=== PATIENT | male | born 1960 | race African-American/Black ===

== ENCOUNTER 2017-11-10 17:29 | Emergency (ER) | payer OTHER ==
[~2017-11-10] VITALS: Ht 195.6 cm; Wt 101.2 kg
[~2017-11-10 17:29] MED LIST: ACETAMINOPHEN-1 EAC1 ORAL; BACTRIM DS TAB1 EAC1 ORAL; TRAMADOL HCL50 MG ORAL
[2017-11-10] MEDS ORDERED: UNOBMED (17:37)
[2017-11-10] MEDS ORDERED: CYCLOBENZAPRINE10 MG ORAL (17:37)
--- NOTE | 2017-11-10 18:10 | Emergency Room Report ---
History of Present Illness General Chief Complaint: Pain Source: Patient Present Illness HPI 57 YO Male presents to the ED C/O 10/03 in severity tightness/pain and cramping in the anterior thighs bilaterally x 1 week. pt. reports no relief from 10mg Flexeril which he has been taking. pt. reports that he walks 1 mile to and from work each day, and is standing mostly while at work. pt. denies appreciable trauma or fall. pt. reports when he stands up straight sometimes he will feel tightness in the inguinal area down into the medial thighs bilaterally. Denies neck or back pain. pt. denies dysuria, penile d/c, hx of hernia or swollen tender lymph nodes. Allergies: Coded Allergies: No Known Allergies (Unverified , 04/18/15) Patient History Past Medical History: see triage record Past Surgical History: none Pertinent Family History: none Reviewed Nursing Documentation: PMH: Agreed; PSxH: Agreed Nursing Documentation-PMH Past Medical History: No History, Except For Hx Hypertension: Yes Review of Systems All Other Systems: negative except mentioned in HPI Physical Exam Vital Signs Date Time Temp Pulse Resp B/P (MAP) Pulse Ox O2 Delivery O2 Flow Rate FiO2 11/10/17 17:31 98.0 67 18 157/95 98 Room Air 98.1 Sp02 EP Interpretation: reviewed, normal General Appearance: no apparent distress, alert, GCS 15, non-toxic Head: normocephalic, atraumatic Eyes: bilateral eye normal inspection, bilateral eye PERRL ENT: hearing grossly normal, normal voice Neck: full range of motion Respiratory: lungs clear, normal breath sounds, speaking full sentences Cardiovascular #1: regular rate, rhythm, no edema Gastrointestinal: non tender, soft Genitourinary: normal inspection Musculoskeletal: back normal, gait/station normal, normal range of motion, tender - TTP to the anterior thigh and medial thighs bilaterally, primarily on the right side. Neurologic: alert, oriented x3, responsive, motor strength/tone normal, sensory intact, normal gait, speech normal, grossly normal Psychiatric: judgement/insight normal Skin: normal color, no rash, warm/dry, well hydrated Lymphatic: no adenopathy Medical Decision Making PA Attestation Dr. Fried is my supervising physician whom pt. management has been discussed with. Diagnostic Impression: Primary Impression: Muscle strain of right lower extremity Qualified Codes: S86.911A - Strain of unspecified muscle(s) and tendon(s) at lower leg level, right leg, initial encounter ER Course 57 YO Male presents to the ED C/O 10/03 in severity tightness/pain and cramping in the anterior thighs bilaterally x 1 week. pt. reports no relief from 10mg Flexeril which he has been taking. pt. reports that he walks 1 mile to and from work each day, and is standing mostly while at work. pt. denies appreciable trauma or fall. pt. reports when he stands up straight sometimes he will feel tightness in the inguinal area down into the medial thighs bilaterally. Denies neck or back pain. pt. denies dysuria, penile d/c, hx of hernia or swollen tender lymph nodes. Ddx considered but are not limited to Fracture, dislocation, contusion, Sprain/ Strain/Spasm, hernia just to name a few. Vital signs: are WNL, pt. is afebrile H&PE are most consistent with musculoskeletal injury will perform imaging to r/ o fractures/dislocations. ORDERS: - none required at this time dx is clinical. ED INTERVENTIONS: - Toradol IM d/w pt. conservative treatment, and to follow up with a primary care provider. pt given a list of primary care clinics for follow up. d/w pt. to return to the ED with worsening or new symptoms. - D/w pt. importance of resting, and to avoid walking long distance for 1 week. DISCHARGE: At this time pt. is stable for d/c to home. Will provide printed patient care instructions, and any necessary prescriptions. Care plan and follow up instructions have been discussed with the patient prior to discharge. Last Vital Signs Date Time Temp Pulse Resp B/P (MAP) Pulse Ox O2 Delivery O2 Flow Rate FiO2 11/10/17 17:31 98.0 67 18 157/95 98 Room Air 98.1 Disposition: HOME, SELF-CARE Condition: Stable Scripts Ibuprofen* (MOTRIN*) 600 Mg Tablet 600 MG ORAL THREE TIMES A DAY, #30 TAB 0 Refills Prov: Stephanie Anderson 11/10/17 Methocarbamol* (ROBAXIN*) 500 Mg Tablet 1000 MG PO TID, #42 TAB 0 Refills Prov: Stephanie Anderson 11/10/17 Patient Instructions: Muscle Cramps and Spasms, [id number] Additional Instructions: Take medications as directed. Follow up with a Primary Care Provider in 3-5 days, even if your symptoms have resolved. --Please review list of primary care clinics, if you do not already have a primary care provider Return sooner to ED if new symptoms occur, or current symptoms become worse. Do not drink alcohol, drive, or operate heavy machinery while taking Robaxin ( Muscle Relaxers) as this may cause drowsiness. - Please note that this Emergency Department Report was dictated using [employer] technology software, occasionally this can lead to erroneous entry secondary to interpretation by the dictation equipment. Stephanie Anderson Nov 10, 2017 18:10
[2017-11-10] MEDS ORDERED: IBUPROFEN600 MG ORAL (18:12)
[2017-11-10] MEDS ORDERED: ROBAXIN500 MG PO (18:12)
[2017-11-10] MEDS ORDERED: Ketorolac 60mg Inj IM ONE (18:15)
[2017-11-10 18:24] VITALS: BP 157/95
[2017-11-10 18:46] VITALS: BP 146/88
== END 2017-11-10 18:46 | disposition home or self-care (01) ==
LOC: EMR 18:05
DX: S76.811A Strain of other specified muscles, fascia and tendons at thigh level, right thigh, initial encounter (principal); M79.652 Pain in left thigh; M79.651 Pain in right thigh; I10 Essential (primary) hypertension; Y93.01 Activity, walking, marching and hiking; Y99.9 Unspecified external cause status; Y92.9 Unspecified place or not applicable
CPT/HCPCS: 96372; 99283

== ENCOUNTER 2017-11-15 19:26 | Emergency (ER) | payer OTHER ==
[~2017-11-15] VITALS: Ht 195.6 cm; Wt 101.2 kg
[~2017-11-15 19:26] MED LIST changes: +CYCLOBENZAPRINE10 MG ORAL; +IBUPROFEN600 MG ORAL; +ROBAXIN500 MG PO; +UNOBMED
[2017-11-15 19:40] VITALS: BP 138/82
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
[2017-11-15] MEDS ORDERED: Ketorolac 60mg Inj IM ONE (20:00)
--- NOTE | 2017-11-15 20:48 | Diagnostic Imaging Report ---
EXAM: XR Lumbar Spine, 2 or 3 Views CLINICAL HISTORY: PAIN TECHNIQUE: Frontal and lateral views of the lumbar spine. COMPARISON: No relevant prior studies available. FINDINGS: Vertebrae: Unremarkable. No acute fracture. Normal alignment. Disc spaces: No acute findings. No significant narrowing. Soft tissues: Unremarkable. Other findings: Mild discogenic degeneration. Mild facet arthropathy. Osteopenia. No acute osseous abnormality. IMPRESSION: 1. No acute abnormality. 2. Mild multilevel age-related degenerative spine findings.
[2017-11-15] MEDS ORDERED: TRAMADOL HCL50 MG ORAL (21:11)
[2017-11-15 21:43] VITALS: BP 130/78
[2017-11-15 21:51] VITALS: BP 130/78
== END 2017-11-15 21:52 | disposition home or self-care (01) ==
LOC: EMR 19:40
DX: M54.5 Low back pain (principal); I10 Essential (primary) hypertension
CPT/HCPCS: 72020; 96372; 99283

== ENCOUNTER 2017-11-19 21:20 | Emergency (ER) | payer OTHER ==
[~2017-11-19] VITALS: Ht 195.6 cm; Wt 101.2 kg
[2017-11-19 21:56] VITALS: BP 152/97
[2017-11-19] MEDS ORDERED: ACETAMINOPHEN-1 EAC1 ORAL (22:32)
[2017-11-19] MEDS ORDERED: Tylenol #3 tab (300mg/30mg) ORAL ONE (22:45)
--- NOTE | 2017-11-19 22:51 | Emergency Room Report ---
History of Present Illness General Chief Complaint: Pain Source: Patient Present Illness HPI Patient presents with complaints of right buttock pain radiation to the upper thigh Patient reports that he has been having this problem for over a month Has been seen by another facility and here Reports that he has been walking with a cane He feels that when he stands or moves the leg he feels a tightening and stretch in the buttock area which wraps around to the anterior upper leg Denies any recent fall or trauma Denies any testicular pain Denies any weakness in the leg denies any numbness or tingling however feels that tightening and that stretching feeling when moving the hip and leg Allergies: Coded Allergies: No Known Allergies (Unverified , 04/18/15) Patient History Past Medical History: see triage record Pertinent Family History: none Reviewed Nursing Documentation: PMH: Agreed; PSxH: Agreed Nursing Documentation-PMH Past Medical History: No History, Except For Hx Hypertension: Yes Review of Systems All Other Systems: negative except mentioned in HPI Physical Exam Vital Signs Date Time Temp Pulse Resp B/P (MAP) Pulse Ox O2 Delivery O2 Flow Rate FiO2 11/19/17 21:43 98.4 62 20 155/99 97 Room Air 98.4 Sp02 EP Interpretation: reviewed, normal General Appearance: well appearing, no apparent distress Head: normocephalic, atraumatic Eyes: bilateral eye PERRL, bilateral eye EOMI ENT: hearing grossly normal, normal pharynx Neck: full range of motion Respiratory: lungs clear Cardiovascular #1: regular rate, rhythm Gastrointestinal: non tender, soft Musculoskeletal: other - Some discomfort reproduced at midpoint of the right buttock area, with flexion of the right hip it reproduces some of the discomfort in the buttock he also feels a stretching in the upper thigh. Patient is able to flex and extend on the foot, sensory is intact Neurologic: alert, oriented x3 Skin: no rash Lymphatic: no adenopathy Medical Decision Making Diagnostic Impression: Primary Impression: sciatica ER Course Patient does not have any midline discomfort Does not have any neuropathy or findings consistent with epidural/spinal abscess Patient has equal flexion and extension of both feet able to flex at the hip Sensory is intact I discussed with the patient that he has had several visits to the emergency room with similar complaint Outpatient follow-up is crucial and very important He has had L-spine x-ray which did not show any acute pathology I did not feel further imaging was required given the exam and findings And the patient requires close follow-up Last Vital Signs Date Time Temp Pulse Resp B/P (MAP) Pulse Ox O2 Delivery O2 Flow Rate FiO2 11/19/17 21:43 98.4 62 20 155/99 97 Room Air 98.4 Status: improved Disposition: HOME, SELF-CARE Condition: Stable Scripts Acetaminophen With Codeine (T#3) (TYLENOL #3 TAB*) Y Tab 1 TAB ORAL Q8H PRN for For Pain, #9 TAB Prov: Matthew Burr DO 11/19/17 Patient Instructions: Sciatica, [id number] Additional Instructions: Patient is provided with the discharge instructions notified to follow up with primary doctor in the next 2-3 days otherwise return to the er with any worsening symptoms. Please note that this report is being documented using [employer] technology. This can lead to erroneous entry secondary to incorrect interpretation by the dictating instrument. Matthew Burr DO Nov 19, 2017 22:50
[2017-11-19 22:55] VITALS: BP 151/91
== END 2017-11-19 22:55 | disposition home or self-care (01) ==
LOC: EMR 22:32
DX: M54.41 Lumbago with sciatica, right side (principal); I10 Essential (primary) hypertension
CPT/HCPCS: 99282